=== PATIENT | female | born 1935 | race Caucasian/White ===

== ENCOUNTER 2017-09-18 08:55 | Day surgery (SDC) | payer MEDICARE, BC ==
[~2017-09-18] VITALS: Ht 160 cm; Wt 66.5 kg
[~2017-09-18 08:55] MED LIST: ASPI-1265 PO; ATE25T PO; LISI-232 PO; LOVA40TA76 PO; METH2.5T PO; NOR5T PO
[2017-09-18] MEDS ORDERED: normal saline 1000ml 1,000 ML IV PRN (09:25)
[2017-09-18] MEDS ORDERED: POTA20TA19 PO (10:05)
[2017-09-18] MEDS ORDERED: MULTIVITAMIN (10:05)
[2017-09-18] MEDS ORDERED: HYDR12.5 PO (10:05)
[2017-09-18] MEDS ORDERED: IRON (10:05)
[2017-09-18] MEDS ORDERED: LISI40TA4 PO (10:05)
[2017-09-18] MEDS ORDERED: VITAMIN C (10:05)
[2017-09-18] MEDS ORDERED: CALCIUM (10:05)
[2017-09-18 10:26] VITALS: BP 190/68
[2017-09-18 10:49] LABS: BASOPHILS % (AUTO) 0.2 % (0-1); EOSINOPHILS # (AUTO) 0.4 X10'3 (0-0.9); EOSINOPHILS % (AUTO) 4.1 % (0-6); HEMATOCRIT 29.8 % (35.0-45.0); HEMOGLOBIN 9.9 g/dl (12.0-16.0); LYMPHOCYTES # (AUTO) 0.8 X10'3 (1.1-4.8); LYMPHOCYTES % (AUTO) 7.9 % (21-51); MEAN CORPUSCULAR HGB CONC 33.4 % (33.0-36.5); MEAN PLATELET VOLUME 7.5 FL (7.4-10.4); MONOCYTES # (AUTO) 0.9 X10'3 (0-0.9); MONOCYTES % (AUTO) 8.6 % (2-12); NEUTROPHILS # (AUTO) 8.2 X10'3 (1.8-7.7); NEUTROPHILS % (AUTO) 79.2 % (42-75); PLATELET COUNT 309 X10'3 (140-440); RED BLOOD COUNT 3.54 X10'6 (4.20-5.60); WHITE BLOOD COUNT 10.3 X10'3 (4.5-11.0)
[2017-09-18] MEDS ORDERED: normal saline 1000ml 1,000 ML IV SCH (11:04)
[2017-09-18] MEDS ORDERED: midazolam 2 mg/2 ml injection IV PRN (11:05)
[2017-09-18] MEDS ORDERED: fentaNYL/PF 50MCG/1 ML 2ML syringe IV PRN (11:05)
[2017-09-18] MEDS ORDERED: midazolam 2 mg/2 ml injection ONE (11:14)
[2017-09-18] MEDS ORDERED: fentaNYL/PF 50MCG/1 ML 2ML syringe ONE (11:14)
[2017-09-18 11:45] VITALS: BP 160/69
[2017-09-18] MEDS ORDERED: HYDR200T84 PO (12:45)
== END 2017-09-18 12:00 | disposition home or self-care (01) ==
LOC: SSTAY O 08:55
PROVIDERS: ATTEND Radiology Diagnostic Radiology
DX: R91.1 Solitary pulmonary nodule (principal); M19.90 Unspecified osteoarthritis, unspecified site; I10 Essential (primary) hypertension; M06.9 Rheumatoid arthritis, unspecified; Z72.89 Other problems related to lifestyle; Z87.891 Personal history of nicotine dependence; Z90.12 Acquired absence of left breast and nipple; Z85.3 Personal history of malignant neoplasm of breast; Z85.858 Personal history of malignant neoplasm of other endocrine glands; Z79.82 Long term (current) use of aspirin; Z79.899 Other long term (current) drug therapy; Z98.890 Other specified postprocedural states
CPT/HCPCS: 36415; 71250; 85025; J2250; J3010; J7030

== ENCOUNTER 2019-05-24 09:22 | Emergency (ER) | payer MEDICARE, BC ==
[~2019-05-24] VITALS: Ht 157.5 cm; Wt 68.2 kg
[~2019-05-24 09:22] MED LIST changes: +CALCIUM; +HYDR12.5 PO; +HYDR200T84 PO; +HYDR25TA4 PO; +IRON; -LISI-232 PO; +LISI40TA4 PO; -METH2.5T PO; +MULTIVITAMIN; +POTA20TA19 PO; +VITAMIN C
[2019-05-24 11:31] VITALS: BP 160/62
[2019-05-24] MEDS ORDERED: HYDR-3965 PO (12:15)
[2019-05-24] MEDS ORDERED: HYDROcodone/acetaminophen 5mg/325mg tablet PO ONE (12:15)
== END 2019-05-24 12:35 | disposition home or self-care (01) ==
LOC: ER 09:23
DX: S22.42XA Multiple fractures of ribs, left side, initial encounter for closed fracture (principal); S40.022A Contusion of left upper arm, initial encounter; M25.552 Pain in left hip; I10 Essential (primary) hypertension; M06.9 Rheumatoid arthritis, unspecified; F10.99 Alcohol use, unspecified with unspecified alcohol-induced disorder; Z85.3 Personal history of malignant neoplasm of breast; Z98.890 Other specified postprocedural states; Z79.82 Long term (current) use of aspirin; Z79.899 Other long term (current) drug therapy; W18.39XA Other fall on same level, initial encounter; Y93.89 Activity, other specified; Y92.89 Other specified places as the place of occurrence of the external cause; Y99.8 Other external cause status; Y90.9 Presence of alcohol in blood, level not specified
CPT/HCPCS: 71101; 73502; 99284

== ENCOUNTER 2019-08-23 11:57 | Emergency (ER) | payer MEDICARE, BC ==
[~2019-08-23] VITALS: Ht 157.5 cm; Wt 68.2 kg
--- NOTE | 2019-08-23 13:46 | NUR ---
provider at the bedside at this time
[2019-08-23] MEDS ORDERED: cloNIDine 0.1 mg tablet PO ONE (13:55)
[2019-08-23] MEDS ORDERED: CLON-529 PO (14:21)
[2019-08-23 14:42] VITALS: BP 174/85
== END 2019-08-23 14:44 | disposition home or self-care (01) ==
LOC: ER 11:57
DX: I10 Essential (primary) hypertension (principal); M06.9 Rheumatoid arthritis, unspecified; E78.00 Pure hypercholesterolemia, unspecified; Z87.891 Personal history of nicotine dependence; Z85.3 Personal history of malignant neoplasm of breast; Z79.899 Other long term (current) drug therapy; Z79.82 Long term (current) use of aspirin
CPT/HCPCS: 99284

== ENCOUNTER → 2021-02-28 | Emergency (ER) | payer MEDICARE, BC ==
[~2021-02-28] VITALS: Ht 154.9 cm; Wt 68.8 kg
[~2021-02-28] MED LIST changes: +CLON-529 PO; +CLON0.1T2 PO; +LISI40TA13 PO; -LISI40TA4 PO
[2021-02-28 14:18] VITALS: BP 172/70
== END | disposition home or self-care (01) ==
LOC: ER 13:06
DX: I10 Essential (primary) hypertension (principal); M06.9 Rheumatoid arthritis, unspecified; Z72.89 Other problems related to lifestyle; Z85.3 Personal history of malignant neoplasm of breast; Z79.82 Long term (current) use of aspirin; Z79.899 Other long term (current) drug therapy
CPT/HCPCS: 93005; 99283

== ENCOUNTER 2021-03-06 12:53 | Emergency (ER) | payer MEDICARE, BC ==
[~2021-03-06] VITALS: Ht 154.9 cm; Wt 69.3 kg
[~2021-03-06 12:53] MED LIST changes: -CLON0.1T2 PO
[2021-03-06 14:42] VITALS: BP 222/71
[2021-03-06] MEDS ORDERED: CLON0.1T2 PO (15:41)
== END 2021-03-06 15:54 | disposition home or self-care (01) ==
LOC: ER 12:53
DX: I10 Essential (primary) hypertension (principal); M06.9 Rheumatoid arthritis, unspecified; Z85.3 Personal history of malignant neoplasm of breast; Z72.89 Other problems related to lifestyle; Z79.82 Long term (current) use of aspirin; Z79.899 Other long term (current) drug therapy
CPT/HCPCS: 99283